=== PATIENT | male | born 1990 | race Caucasian/White ===

== ENCOUNTER 2023-03-22 19:45 | Emergency (ER) | payer OTHER, SELFPAY ==
[2023-03-22 20:10] VITALS: BP 119/69; PULSE 69; RESP 18; TEMP 39.3; O2SAT 95; BMI 29.6
[2023-03-22 20:19] LABS: Coronavirus 19, PCR Not Detected (NotDetected); Influenza A, PCR Not Detected (NotDetected); Influenza B, PCR Not Detected (NotDetected)
[2023-03-22 21:00] LABS: Strep Scrn Group A (Rapid) Negative (Negative)
--- NOTE | 2023-03-22 21:17 | [facility].EDURI ---
Discharge Plan Disposition Patient Disposition: Home, Self-Care Prescriptions Prescriptions: New azithromycin 250 mg tablet See Rx Instructions .ROUTE .COMPLEX Qty: 6 0RF Rx Instructions: For 250 mg dose pack: take 500 mg today (day 1), then 250 mg for 4 days (days 2-5) No Action buprenorphine-naloxone 2-0.5 mg film 2 film sublingual DAILY Mavyret 100-40 mg tablet 1 tab PO DAILY Referrals Follow up/Referrals: Provider,Referral, [Primary Care Provider] - See instructions Clinical Impressions Clinical Impression: Pharyngitis Discharge ED Provider: Ramsey Sullivan URI/Sore Throat HPI General Chief Complaint: Upper Respiratory Infection Stated Complaint: fever 104, fainted Time Seen by Provider: 03/22/23 21:17 Mode of Arrival: Ambulatory Source of Information: Patient Limitations: No Limitations Description of Symptoms (Recalled from ER Triage Doc. by RN): Pt arrives to ed via private vehicle c/o fever, sore throat since last night. Also c/o 3 episodes of vomiting since yesterday. History of Present Illness HPI Narrative: 32-year-old white male presents with 2-day history of sore throat fever abdominal pain and diffuse myalgias. The patient has no primary care physician and has not seen anyone before for this. He has no other medical problems but he does take Suboxone. The patient lists penicillin as his only allergy. MD Complaint: fever and sore throat Related Data Home Medications Medication Instructions Recorded Confirmed buprenorphine 2 mg-naloxone 0.5 mg 2 film sublingual DAILY drug 03/22/23 03/22/23 sublingual film withdrawal glecaprevir 100 mg-pibrentasvir 40 1 tab PO DAILY hepatitis 03/22/23 03/22/23 mg tablet (Mavyret) Previous Rx's Medication Instructions Recorded azithromycin 250 mg tablet See Rx Instructions PO .COMPLEX #6 03/22/23 tabs Allergies Allergy/AdvReac Type Severity Reaction Status Date / Time Penicillins Allergy Verified 03/22/23 20:14 [facility] Disclaimer: The information contained in this section may have been updated after the patient was seen, as this information can be updated by other users. Social History Smoking Status: Current every day smoker alcohol intake: former current occupational status: employed Travel in the last 8 weeks: Inside the [place] ROS Obtained: Yes All systems reviewed & no additional complaints except as documented Physical Exam General General appearance: lethargic and in distress (Mild to moderate) Head Head exam: atraumatic and normocephalic Eye Eye exam: Present normal appearance Expanded ENT Exam Open Mouth Image: 1. Acutely enlarged erythematous tonsils 2. Acutely enlarged erythematous tonsils Neck Neck exam: Present lymphadenopathy Respiratory Respiratory exam: Present normal lung sounds bilaterally Cardiovascular Cardiovascular exam: Present regular rate and normal rhythm Abdominal Exam Abdominal exam: Present soft and tenderness (Left upper quadrant) Neurological Exam Neurological exam: Present alert, oriented X3 and CN II-XII intact Medical Decision Making Medical Records MR Comment: 32-year-old white male presents with sore throat fever to 104 and tender cervical adenopathy with some mild tenderness in the left upper quadrant the patient rest of his exam just significant for him. Do feel very ill. Evaluation includes negative COVID flu and strep swabs. He has strep breath that smells as though this is indeed streptococcal pharyngitis. Suspect that the swab was incorrect. I will proceed to treating him as if he does have strep pharyngitis with the counseling that mono can also do this but that the Monospot will take 10 days to turn positive so it is too early to check that. Patient understands and although he has no primary care has agreed to establish with a primary care in [place] where he typically res
[2023-03-22 21:43] VITALS: BP 120/70; PULSE 70; RESP 16; TEMP 37.2; O2SAT 98
== END 2023-03-22 21:47 | disposition home or self-care (01) ==
PROVIDERS: Emergency Provider Emergency Medicine
DX: J02.9 Acute pharyngitis, unspecified (principal); R10.9 Unspecified abdominal pain; R50.9 Fever, unspecified; F17.200 Nicotine dependence, unspecified, uncomplicated
CPT/HCPCS: 87430; 99283; 99284; C9803; U0003; U0005